=== PATIENT | female | born 1995 | race African-American/Black ===

== ENCOUNTER 2021-04-14 06:00 | Emergency (ER) | payer BC ==
[2021-04-14] MEDS ORDERED: Metoclopramide 10 MG/2 ML SDV IVPUSH ONE (06:30)
[2021-04-14] MEDS ORDERED: diphenhydrAMINE 50 MG/ML SDV IVPUSH ONE (06:30)
--- NOTE | 2021-04-14 06:34 | EDM.PDOC ---
<Mario Mcgowan - Last Filed: 04/14/21 06:35> ED HPI GENERAL MEDICAL PROBLEM - General Chief Complaint: Headache Stated Complaint: SEVERE MIGRAINE Time Seen by Provider: 04/14/21 06:10 Source of Information: Reports: Patient History Limitations: Reports: No Limitations - History of Present Illness INITIAL COMMENTS - FREE TEXT/NARRATIVE: Patient is a 25-year-old female who presents today for a headache. Patient has had a headache for past few days been try [id number] Motrin without much relief. She was able to get a few hours of sleep tonight but decided to come in because in the past she had a similar headache and there was fluid in her brain or_she is not very sure. States she had a tube placed to drain some the fluid out. She denies any facial swelling vision changes any numbness weakness or extremity weakness. Patient denies any falls injuries or any other complaints. 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: - Past Surgical History Other HEENT Surgeries/Procedures: Pt had fluid build up that had to be drained from skull/face in 2016 Social & Family History - Recreational Drug Use Recreational Drug Use: Yes Recreational Drug Type: Reports: Marijuana/Hashish Recreational Drug Use Frequency: Weekly ED ROS GENERAL - Review of Systems Review Of Systems: See Below Constitutional: Reports: No Symptoms HEENT: Reports: No Symptoms Respiratory: Reports: No Symptoms Cardiovascular: Reports: No Symptoms Endocrine: Reports: No Symptoms GI/Abdominal: Reports: No Symptoms : Reports: No Symptoms Musculoskeletal: Reports: No Symptoms Skin: Reports: No Symptoms Neurological: Reports: Headache Psychiatric: Reports: No Symptoms Hematologic/Lymphatic: Reports: No Symptoms Immunologic: Reports: No Symptoms - Physical Exam Exam: See Below Exam Limited By: No Limitations General Appearance: Alert, WD/WN, No Apparent Distress Head Exam: Atraumatic Respiratory/Chest: No Respiratory Distress, Lungs Clear, Normal Breath Sounds Cardiovascular: Normal Peripheral Pulses GI/Abdominal: Normal Bowel Sounds, Soft, Non-Tender Neuro Exam (Abbreviated): Alert, Oriented, Normal Cognition, Normal Gait Back Exam: Normal Inspection Departure - Departure Disposition: Home, Self-Care 01 Clinical Impression: Headache - Discharge Information Instructions: General Headache Without Cause Forms: ED Department Discharge Additional Instructions: Your CT scan today was normal and showed no abnormal fluid collections or any other structural abnormalities. Your headache should continue to improve throughout the day I recommend that you take some Tylenol or ibuprofen for any residual headache. If your symptoms worsen or you have any other new symptoms that concern you please call your doctor or return to the ER. If you do not have a primary care doctor he can follow-up with one of the primary care clinics listed below. [facility] [address] [place] [id number] [facility] [address] [place] [id number] The following information is given to patients seen in the emergency department who are being discharged to home. This information is to outline your options for follow-up care. We provide all patients seen in our emergency department with a follow-up referral. The need for follow-up, as well as the timing and circumstances, are variable depending upon the specifics of your emergency department visit. If you don't have a primary care physician on staff, we will provide you with a referral. We always advise you to contact your personal physician following an emergency department visit to inform them of the circumstance of the visit and for follow-up with them and/or the need for any referrals to a consulting specialist. The emergency department will also refer you to a specialist when appropriate. This referral assures that you have the opportunity for follow-up care with a specialist. All of these measure are taken in an effort to provide you with optimal care, which includes your follow-up. Under all circumstances we always encourage you to contact your private physician who remains a resource for coordinating your care. When calling for follow-up care, please make the office aware that this follow-up is from your recent emergency room visit. If for any reason you are refused follow-up, please contact the [facility] Emergency Department at and asked to speak to the emergency department charge nurse. Sepsis Event Note (ED) - Evaluation Sepsis Screening Result: No Definite Risk - Assessment/Plan Plan: Patient is a 25-year-old female presents today for a headache. Patient on exam looks well has no neurological deficits. She had a history of having some type of fluid on her brain which is unclear and we have no records of it. We will provide pain control and also obtain a CT scan. Patient will be signed oncoming attending if CT scan is normal pain control patient likely be discharged home. <Chuckie Watkins - Last Filed: 04/14/21 07:33> Course - Vital Signs Last Recorded V/S: Last Vital Signs Temp 98.4 F 04/14/21 06:11 Pulse 84 04/14/21 07:19 Resp 15 04/14/21 07:19 BP 111/67 04/14/21 07:19 Pulse Ox 98 04/14/21 07:19 - Orders/Labs/Meds Orders: Active Orders 24 hr Category Date Time Status HCG QUALITATIVE,URINE [URCHEM] Stat Lab 04/14/21 06:34 Ordered Meds: Medications Discontinued Medications Generic Name Dose Route Start Last Admin Trade Name Freq PRN Reason Stop Dose Admin Diphenhydramine HCl 12.5 mg 04/14/21 06:30 04/14/21 06:44 Diphenhydramine 50 Mg/Ml Sdv IVPUSH 04/14/21 06:31 12.5 mg ONETIME ONE Administration Metoclopramide HCl 10 mg 04/14/21 06:30 04/14/21 06:44 Metoclopramide 10 Mg/2 Ml Sdv IVPUSH 04/14/21 06:31 10 mg ONETIME ONE Administration Departure - Departure Time of Disposition: 07:32 Condition: Good - Discharge Information *PRESCRIPTION DRUG MONITORING PROGRAM REVIEWED*: Not Applicable *COPY OF PRESCRIPTION DRUG MONITORING REPORT IN PATIENT BENJAMIN: Not Applicable Sepsis Event Note (ED) - Focused Exam Vital Signs: Vital Signs Temp Pulse Resp BP Pulse Ox 04/14/21 07:19 84 15 111/67 98 04/14/21 06:11 98.4 F 83 16 122/65 99 - Assessment/Plan Assessment:: Patient received in signout from Dr. Mcgowan at 7 AM. On my reassessment at 730 patient symptoms have dramatically improved. Though she is mildly sleepy from the Benadryl. CT scan is normal. Patient felt stable for discharge.
--- NOTE | 2021-04-14 07:24 | CT ---
INDICATION: Headache, history of fluid in brain. COMPARISON: None. TECHNIQUE: CT of the head without IV contrast. Coronal and sagittal reconstructions are provided. FINDINGS: No intracranial hemorrhage, mass effect, or evidence of acute infarct. No midline shift. No abnormal extra-axial fluid collections. Normal caliber ventricular system. Orbits and extraocular muscles are symmetric. The paranasal sinuses and mastoid air cells are clear. No acute fracture identified. Soft tissues are unremarkable. IMPRESSION: : No acute intracranial findings. Please note that all CT scans at this facility use dose modulation, iterative reconstruction, and/or weight-based dosing when appropriate to reduce radiation dose to as low as reasonably achievable. Dictated by Nicole Heath MD @ 04/14/2021 7:22:48 AM (Electronically Signed)
== END 2021-04-14 07:54 | disposition home or self-care (01) ==
LOC: MW.ED 06:00
DX: R51.9 Headache, unspecified (principal)
CPT/HCPCS: 70450; 96374; 96375; 99284; J1200; J2765

== ENCOUNTER 2021-04-18 23:18 | Emergency (ER) | payer BC ==
--- NOTE | 2021-04-18 23:28 | EDM.PDOC ---
ED HPI GENERAL MEDICAL PROBLEM - General Chief Complaint: ENT Problem Stated Complaint: MIGRAINE, NOT IMPROVING Time Seen by Provider: 04/18/21 23:20 Source of Information: Reports: Patient History Limitations: Reports: No Limitations - History of Present Illness INITIAL COMMENTS - FREE TEXT/NARRATIVE: 25-year-old female presents for left-sided headache. Patient notes that she had a tooth pulled a couple of days ago and she is set to have another tooth pulled in a few days. She is on antibiotics for this. She notes that the pain radiates from her jaw into her left-sided face. She is been compliant with her antibiotics. She was only told to take Tylenol at home which is not enough to control her pain. 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 ED EXAM, GENERAL - Physical Exam Exam: See Below Exam Limited By: No Limitations General Appearance: Alert, WD/WN, No Apparent Distress Eye Exam: Bilateral Eye: EOMI, PERRL Ears: Hearing Grossly Normal Nose: Normal Inspection Throat/Mouth: Normal Voice, No Airway Compromise, Other (Poor dentition however no erythema or evidence of abscess formation) Head: Atraumatic, Normocephalic Neck: Normal Inspection, Supple, Non-Tender Respiratory/Chest: No Respiratory Distress, Lungs Clear, Normal Breath Sounds, No Accessory Muscle Use Cardiovascular: Normal Peripheral Pulses, Regular Rate, Rhythm Extremities: Normal Inspection Neurological: Alert, CN II-XII Intact, Normal Cognition, Normal Gait, No Motor/Sensory Deficits Psychiatric: Normal Affect, Normal Mood Skin Exam: Warm, Dry, Intact, Normal Color Course - Vital Signs Last Recorded V/S: Last Vital Signs Temp 97.7 F 04/18/21 23:32 Pulse 77 04/18/21 23:32 Resp 18 04/18/21 23:32 BP 121/73 04/18/21 23:32 Pulse Ox 100 04/18/21 23:32 - Orders/Labs/Meds Orders: Active Orders 24 hr Category Date Time Status Sodium Chloride 0.9% [Normal Saline] 1,000 ml Med 04/18/21 23:38 Active IV .Bolus Saline Lock Insert [OM.PC] Stat Oth 04/18/21 23:38 Ordered Medication Orders Sodium Chloride (Normal Saline) 1,000 mls @ 999 mls/hr IV .Bolus ONE Stop: 04/19/21 00:38 Last Admin: 04/18/21 23:49 Dose: 999 mls/hr Documented by: LM Labs: Laboratory Tests 04/19/21 04/19/21 Range/Units 00:00 00:00 WBC 7.80 (4.0-11.0) K/uL RBC 4.71 (4.30-5.90) M/uL Hgb 12.8 (12.0-16.0) g/dL Hct 38.0 (36.0-46.0) % MCV 80.7 (80.0-98.0) fL MCH 27.2 (27.0-32.0) pg MCHC 33.7 (31.0-37.0) g/dL RDW Std Deviation 39.1 (28.0-62.0) fl RDW Coeff of Sandy 13 (11.0-15.0) % Plt Count 307 (150-400) K/uL MPV 9.50 (7.40-12.00) fL Neut % (Auto) 55.8 (48.0-80.0) % Lymph % (Auto) 32.4 (16.0-40.0) % [place] % (Auto) 9.5 (0.0-15.0) % Eos % (Auto) 2.2 (0.0-7.0) % Baso % (Auto) 0.1 (0.0-1.5) % Neut # (Auto) 4.4 (1.4-5.7) K/uL Lymph # (Auto) 2.5 H (0.6-2.4) K/uL [place] # (Auto) 0.7 (0.0-0.8) K/uL Eos # (Auto) 0.2 (0.0-0.7) K/uL Baso # (Auto) 0.0 (0.0-0.1) K/uL Nucleated RBC % 0.0 /100WBC Nucleated RBCs # 0 K/uL Sodium 137 (136-145) mmol/L Potassium 3.6 (3.5-5.1) mmol/L Chloride 102 (98-107) mmol/L Carbon Dioxide 25.7 (21.0-32.0) mmol/L BUN 10 (7.0-18.0) mg/dL Creatinine 1.0 (0.6-1.0) mg/dL Est Cr Clr Drug Dosing 69.90 mL/min Estimated GFR (MDRD) > 60.0 ml/min Glucose 87 (74-106) mg/dL Calcium 8.5 (8.5-10.1) mg/dL Meds: Medications Generic Name Dose Route Start Last Admin Trade Name Freq PRN Reason Stop Dose Admin Sodium Chloride 1,000 mls @ 999 mls/hr 04/18/21 23:38 04/18/21 23:49 Normal Saline IV 04/19/21 00:38 999 mls/hr .Bolus ONE Administration Discontinued Medications Generic Name Dose Route Start Last Admin Trade Name Freq PRN Reason Stop Dose Admin Diphenhydramine HCl 25 mg 04/18/21 23:38 04/18/21 23:48 Diphenhydramine 50 Mg/Ml Sdv IVPUSH 04/18/21 23:39 25 mg ONETIME ONE Administration Ketorolac Tromethamine 15 mg 04/18/21 23:38 04/18/21 23:49 Ketorolac 15 Mg/Ml Sdv IVPUSH 04/18/21 23:39 15 mg STAT STA Administration Metoclopramide HCl 10 mg 04/18/21 23:38 04/18/21 23:48 Metoclopramide 10 Mg/2 Ml Sdv IVPUSH 04/18/21 23:39 10 mg ONETIME ONE Administration Oxycodone/Acetaminophen 1 tab 04/18/21 23:38 04/18/21 23:49 Acetaminophen/Oxycodone 325-5 Mg Tab PO 04/18/21 23:39 1 tab ONETIME ONE Administration - Re-Assessments/Exams Free Text/Narrative Re-Assessment/Exam: 04/19/21 00:29 Labs unremarkable. Patient feeling much better. Will discharge with a short course of analgesia and recommend follow-up with dentist. Departure - Departure Time of Disposition: 00:29 Disposition: Home, Self-Care 01 Condition: Good Clinical Impression: Pain, dental - Discharge Information Instructions: Dental Pain Referrals: PCP,None [Primary Care Provider] - Forms: ED Department Discharge Additional Instructions: The following information is given to patients seen in the emergency department who are being discharged to home. This information is to outline your options for follow-up care. We provide all patients seen in our emergency department with a follow-up referral. The need for follow-up, as well as the timing and circumstances, are variable depending upon the specifics of your emergency department visit. If you don't have a primary care physician on staff, we will provide you with a referral. We always advise you to contact your personal physician following an emergency department visit to inform them of the circumstance of the visit and for follow-up with them and/or the need for any referrals to a consulting specialist. The emergency department will also refer you to a specialist when appropriate. This referral assures that you have the opportunity for follow-up care with a specialist. All of these measure are taken in an effort to provide you with optimal care, which includes your follow-up. Under all circumstances we always encourage you to contact your private physician who remains a resource for coordinating your care. When calling for follow-up care, please make the office aware that this follow-up is from your recent emergency room visit. If for any reason you are refused follow-up, please contact the [facility] Emergency Department at and asked to speak to the emergency department charge nurse. Please follow up with your primary care physician. If you do not have a primary care physician, see below: [facility] [address] [place] [id number] [facility] [address] [place] [id number] [facility] [address] [place] [id number] Sepsis Event Note (ED) - Focused Exam Vital Signs: Vital Signs Temp Pulse Resp BP Pulse Ox 04/18/21 23:32 97.7 F 77 18 121/73 100 - My Orders Last 24 Hours: My Active Orders 04/18/21 23:38 Sodium Chloride 0.9% [Normal Saline] 1,000 ml IV .Bolus Saline Lock Insert [OM.PC] Stat - Assessment/Plan Last 24 Hours: My Active Orders 04/18/21 23:38 Sodium Chloride 0.9% [Normal Saline] 1,000 ml IV .Bolus Saline Lock Insert [OM.PC] Stat
[2021-04-18] MEDS ORDERED: Ketorolac 15 MG/ML SDV IVPUSH STA (23:38)
[2021-04-18] MEDS ORDERED: Metoclopramide 10 MG/2 ML SDV IVPUSH ONE (23:38)
[2021-04-18] MEDS ORDERED: Acetaminophen/oxyCODONE 325-5 MG Tab PO ONE (23:38)
[2021-04-18] MEDS ORDERED: Sodium Chloride 0.9% 1,000 ML IV ONE (23:38)
[2021-04-18] MEDS ORDERED: diphenhydrAMINE 50 MG/ML SDV IVPUSH ONE (23:38)
[2021-04-19 00:27] LABS: BLOOD UREA NITROGEN,BUN 10 mg/dL (7.0-18.0); CARBON DIOXIDE,CO2 25.7 mmol/L (21.0-32.0); CHLORIDE,CL 102 mmol/L (98-107); GLUCOSE RANDOM 87 mg/dL (74-106); POTASSIUM,K 3.6 mmol/L (3.5-5.1); SODIUM,NA 137 mmol/L (136-145)
== END 2021-04-19 00:47 | disposition home or self-care (01) ==
LOC: MW.ED 23:18
DX: K08.89 Other specified disorders of teeth and supporting structures (principal)
CPT/HCPCS: 36415; 80048; 85025; 96374; 96375; 99284; A9270; J1200; J1885; J2765; J7030

== ENCOUNTER 2023-01-29 03:46 | Emergency (ER) | payer SELFPAY ==
[2023-01-29] MEDS ORDERED: Ketorolac 30 MG/ML SDV IVPUSH ONE (03:58)
[2023-01-29] MEDS ORDERED: Acetaminophen 500 MG Tab PO ONE (03:58)
[2023-01-29] MEDS ORDERED: Sodium Chloride 0.9% 1,000 ML IV ONE (03:58)
[2023-01-29 04:20] LABS: BASOPHILS PERCENT AUTO 0.3 % (0.0-1.5); EOSINOPHILS ABSOLUTE AUTO 0.3 K/uL (0.0-0.7); HEMATOCRIT 38.8 % (36.0-46.0); HEMOGLOBIN 13.2 g/dL (12.0-16.0); LYMPHOCYTES ABSOLUTE AUTO 2.7 K/uL (0.6-2.4); LYMPHOCYTES PERCENT AUTO 42.1 % (16.0-40.0); MEAN CORPUSCULAR HEMOGLOBIN 27.7 pg (27.0-32.0); MEAN CORPUSCULAR VOLUME 81.3 fL (80.0-98.0); MONOCYTES ABSOLUTE AUTO 0.7 K/uL (0.0-0.8); MONOCYTES PERCENT AUTO 10.6 % (0.0-15.0); NEUTROPHILS ABSOLUTE AUTO 2.8 K/uL (1.4-5.7); NRBC ABSOLUTE 0 K/uL; PLATELET COUNT,PLT 329 K/uL (150-400); RED BLOOD CELL COUNT 4.77 M/uL (4.30-5.90); WHITE BLOOD CELL COUNT,WBC 6.49 K/uL (4.0-11.0)
[2023-01-29 04:34] LABS: INR 0.99 (0.86-1.11); PTT,PARTIAL THROMBOPLSTIN TIME 28.2 SEC (23.9-30.7)
[2023-01-29 04:38] LABS: D-DIMER QUANTITATIVE < 0.19 mg/L FEU (0.00-0.50)
[2023-01-29 04:47] LABS: A/G RATIO 0.8 (0.9-1.6); ALANINE AMINOTRANSFERASE,ALT 18 IU/L (14-63); ALBUMIN 3.2 g/dL (3.4-5.0); ALKALINE PHOSPHATASE 70 U/L (46-116); ASPARTATE AMNIOTRANSFERASE,AST 15 IU/L (15-37); BILIRUBIN TOTAL 0.1 mg/dL (0.2-1.0); BLOOD UREA NITROGEN,BUN 12 mg/dL (7.0-18.0); CARBON DIOXIDE,CO2 28.1 mmol/L (21.0-32.0); CHLORIDE,CL 106 mmol/L (98-107); EST CRCL DRUG DOSING (CG) 80.72 mL/min; GLUCOSE RANDOM 94 mg/dL (74-106); POTASSIUM,K 3.9 mmol/L (3.5-5.1); PROTEIN TOTAL,TP 7.2 g/dL (6.4-8.2); SODIUM,NA 141 mmol/L (136-145)
[2023-01-29 05:06] LABS: ESTIMATED GFR 78 mL/min (>60)
== END 2023-01-29 05:22 | disposition home or self-care (01) ==
LOC: MW.ED 03:46
DX: R07.89 Other chest pain (principal); M25.512 Pain in left shoulder
CPT/HCPCS: 36415; 80053; 84484; 84703; 85025; 85379; 85610; 85730; 93005; 96374; 96375; 99285; A9270; J1885; J3360; J7030; 93010; 99284

== ENCOUNTER 2024-05-29 20:35 | Emergency (ER) | payer SELFPAY ==
[2024-05-29] MEDS: Acetaminophen/HYDROcodone 325-10 MG Tab PO STA (22:27)
[2024-05-29] MEDS: Lidocaine 1% 10 ML MDV INJECT ONE (22:28)
[2024-05-29] MEDS: Amoxicillin/Clavulanate K 875-125 MG Tab PO ONE (23:19)
== END 2024-05-29 23:52 | disposition home or self-care (01) ==
LOC: MW.ED 20:35
DX: L02.412 Cutaneous abscess of left axilla (principal)
CPT/HCPCS: 10060; 99283; A9270; J3490